=== PATIENT | male | born 1970 | race Hispanic/Latino ===

== ENCOUNTER 2018-05-20 23:57 | Emergency (ER) | payer BC ==
[2018-05-21] MEDS ORDERED: Albuterol-Ipratrop 3 mg / 0.5 (3 ml) UD ONE ×2 (00:07→00:38)
[2018-05-21 00:16] VITALS: TEMP 98.7
--- NOTE | 2018-05-21 00:17 | C.PDOC ---
History Of Present Illness 48 year old male presents to the ED c/o wheezing, patient reports that his nebulizer at home seems to not be helping with his symptoms. Patient able to speak in complete sentences. Patient reports he still smokes a pack a day. Patient denies fever, chills, CP, palpitations, nausea, vomit, dizziness, headache, rash. Time Seen by Provider: 05/21/18 00:16 Chief Complaint (Nursing): Respiratory Distress History Per: Patient History/Exam Limitations: no limitations Onset/Duration Of Symptoms: Days Current Symptoms Are (Timing): Still Present Associated Symptoms: Cough Preciptating Factors: Other Severity: Mild Pain Scale Rating Of: 3 Recent travel outside of the [place]: No Additional History Per: Patient - Asthma History Medication Use: Daily Rescue Medications: See Home Medication List Control Medications: See Home Medication List Past Medical History Reviewed: Historical Data, Nursing Documentation, Vital Signs Vital Signs: Last Vital Signs Temp 98.7 F 05/21/18 00:04 Pulse 98 H 05/21/18 00:04 Resp 22 05/21/18 00:04 BP 136/86 05/21/18 00:04 Pulse Ox 90 L 05/21/18 00:04 - Medical History PMH: Anxiety, Asthma Surgical History: No Surg Hx Family History: States: No Known Family Hx - Social History Hx Tobacco Use: Yes Hx Alcohol Use: Yes Hx Substance Use: Yes (marijuana, cocaine) - Immunization History Hx Tetanus Toxoid Vaccination: No Hx Influenza Vaccination: No Hx Pneumococcal Vaccination: No Review Of Systems Constitutional: Negative for: Fever, Chills ENT: Negative for: Nose Discharge, Nose Congestion Cardiovascular: Negative for: Chest Pain, Palpitations Respiratory: Positive for: Cough, Wheezing. Negative for: Shortness of Breath Gastrointestinal: Negative for: Nausea, Vomiting Skin: Negative for: Rash Neurological: Negative for: Headache, Dizziness Physical Exam - Physical Exam Appears: Non-toxic, No Acute Distress Skin: Warm, Dry Head: Normacephalic Eye(s): bilateral: Normal Inspection Oral Mucosa: Moist Throat: No Erythema, No Exudate Neck: Supple Chest: Symmetrical Cardiovascular: Rhythm Regular Respiratory: No Rales, No Rhonchi, Wheezing (scattered) Gastrointestinal/Abdominal: Soft, No Tenderness, No Guarding, No Rebound Neurological/Psych: Oriented x3, Normal Speech, Normal Cognition Gait: Steady ED Course And Treatment O2 Sat by Pulse Oximetry: 90 Pulse Ox Interpretation: Abnormal - Radiology CXR: Interpreted by Me, Viewed By Me CXR Interpretation: Yes: COPD. No: Infiltrates, Fracture, Pnemothorax Progress Note: pt request 0.5 mg xanax for his anxiety. pt refuses all blood work. just want the solumedrol and xanax/ I s aware of the risks including deatah , but he still refuses Reevaluation Time: 01:10 Reassessment Condition: Improved Disposition Counseled Patient/Family Regarding: Studies Performed, Diagnosis, Need For Followup, Rx Given - Disposition Referrals: Jemal Price MD [Staff Provider] - Disposition: AGAINST MEDICAL ADVICE Disposition Time: 00:17 Condition: FAIR Additional Instructions: please return if symptoms recur Prescriptions: Prednisone [Deltasone] 20 mg PO DAILY #5 tablet Instructions: Asthma, Adult (DC) Forms: [employer] ([place]) - Clinical Impression Clinical Impression: Exacerbation of asthma - Scribe Statement The provider has reviewed the documentation as recorded by the Scribe Gregory Ahuja All medical record entries made by the Scribe were at my direction and personally dictated by me. I have reviewed the chart and agree that the record accurately reflects my personal performance of the history, physical exam, medical decision making, and the department course for this patient. I have also personally directed, reviewed, and agree with the discharge instructions and disposition.
[2018-05-21] MEDS ORDERED: Sodium Chloride 0.9% 1,000 ML IV ONE (00:18)
[2018-05-21] MEDS: Albuterol-Ipratrop 3 mg / 0.5 (3 ml) UD IH SCH ×3 (00:30→01:00)
[2018-05-21] MEDS ORDERED: Albuterol 0.083% Inhal Sol (2.5 mg/3 mL) UD ONE (00:38)
[2018-05-21 01:18] VITALS: BP 120/70; PULSE 86; RESP 14; O2SAT 97
--- NOTE | 2018-05-21 08:44 | RAD ---
Date of service: 05/21/2018 PROCEDURE: CHEST RADIOGRAPH, 1 VIEW HISTORY: SOB COMPARISON: 06/26/2013. FINDINGS: LUNGS: The lungs are well inflated and clear. PLEURA: No pneumothorax or pleural effusion. CARDIOVASCULAR: The heart is normal in size. No aortic atherosclerotic calcifications present. OSSEOUS STRUCTURES: Within normal limits for the patient's age. VISUALIZED UPPER ABDOMEN: Normal. OTHER FINDINGS: None. IMPRESSION: No active pulmonary disease.
== END 2018-05-21 01:21 | disposition left against medical advice (07) ==
LOC: SUPCPDRO 23:57 → C.ER 23:57
DX: J45.901 Unspecified asthma with (acute) exacerbation (principal); F17.210 Nicotine dependence, cigarettes, uncomplicated
CPT/HCPCS: 71045; 96374; 99282; J2930